=== PATIENT | female | born 1970 ===

== ENCOUNTER 2024-03-11 05:55 | Day surgery (SDC) | payer OTHER ==
[2024-03-04 15:00] VITALS: BP 112/71
[~2024-03-11] VITALS: Ht 157.5 cm; Wt 70.8 kg
[~2024-03-11 05:55] MED LIST: INDAPAMIDE2.5 MG PO; POTASSIUM CITR15 MEQ PO
[2024-03-11] MEDS ORDERED: METRONIDAZOLE/SODIUM CHLORIDE 500 MG/100 ML PIGGYBACK IV ONE (09:23)
[2024-03-11] MEDS ORDERED: BUPIVACAINE HCL/MPF 0.5% 30ML VIAL ONE (10:54)
[2024-03-11] MEDS ORDERED: DIBUCAINE 30 GM TUBE ONE (10:54)
[2024-03-11] MEDS ORDERED: LIDOCAINE HCL 1%/EPINEPHRINE 20ML VIAL IJ ONE (10:55)
[2024-03-11] MEDS ORDERED: HEMOSTATIC MATRIX 1 KIT KIT TOP ONE (10:55)
[2024-03-11] MEDS ORDERED: POVIDONE-IODINE 118 ML BOTT TOP ONE (10:55)
[2024-03-11] MEDS ORDERED: INTESTINEX680 M1 PO (13:17)
[2024-03-11] MEDS ORDERED: NEURONTIN300 MG PO (13:17)
[2024-03-11] MEDS ORDERED: PERCOCET 5-3251 EACH PO (13:17)
[2024-03-16] MEDS ORDERED: POVIDONE-IODINE 118 ML BOTT TOP ONE (16:00)
[2024-03-16] MEDS ORDERED: HEMOSTATIC MATRIX 1 KIT KIT TOP ONE (16:00)
[2024-03-16] MEDS ORDERED: METRONIDAZOLE/SODIUM CHLORIDE 500 MG/100 ML PIGGYBACK IV ONE (16:00)
[2024-03-16] MEDS ORDERED: DIBUCAINE 30 GM TUBE RECTAL ONE (16:00)
[2024-03-16] MEDS ORDERED: LIDOCAINE HCL 1%/EPINEPHRINE 20ML VIAL IJ ONE (16:15)
[2024-03-16] MEDS ORDERED: BUPIVACAINE HCL 30 ML VIAL IJ ONE (16:15)
== END 2024-03-11 15:05 | disposition home or self-care (01) ==
LOC: CIR.AMB 05:55
PROVIDERS: ATTEND Surgery
DX: K64.1 Second degree hemorrhoids (principal); K64.4 Residual hemorrhoidal skin tags; D23.9 Other benign neoplasm of skin, unspecified; Z88.6 Allergy status to analgesic agent; Z88.1 Allergy status to other antibiotic agents; Z88.0 Allergy status to penicillin; I95.9 Hypotension, unspecified; K29.70 Gastritis, unspecified, without bleeding